=== PATIENT | male | born 1985 | race American Indian/Alaskan Native ===

== ENCOUNTER 2018-07-28 23:34 | Inpatient (IN) | payer SELFPAY ==
[2018-07-29] MEDS ORDERED: DIPRIVAN 10 MG/ML 1,000 MG/100 ML BOTTLE IV ONE ×3 (00:07→11:13)
[2018-07-29] MEDS ORDERED: ZEMURON IV ONE ×2 (00:14→00:24)
[2018-07-29] MEDS ORDERED: AMIDATE IV ONE ×2 (00:14→00:24)
[2018-07-29] MEDS ORDERED: XYLOCAINE CARDIAC IV ONE ×2 (00:14→00:24)
[2018-07-29] MEDS ORDERED: BOOSTRIX IM ONE ×2 (00:17→03:31)
[2018-07-29] MEDS ORDERED: ANCEF/NS 1 GM/50 ML 1 GM/50 ML BAG IV ONE (00:18)
[2018-07-29] MEDS ORDERED: VASELINE LIP THERAPY TP PRN (00:18)
[2018-07-29] MEDS ORDERED: ARTIFICIAL TEARS OPHTH OINT OU PRN (00:18)
[2018-07-29 00:20] LABS: INR 0.91 (0.87-1.13)
[2018-07-29 00:25] LABS: Basophils % (Auto) 0.5 % (0.0-1.8); Eosinophils % (Auto) 0.1 % (0.0-4.3); Hemoglobin 13.6 gm/dl (11.8-15.2); Lymphocytes # (Auto) 1.8 K/mm3 (1.2-5.4); Lymphocytes % (Auto) 16.5 % (13.4-35.0); Mean Corpuscular HGB Conc 34 % (32-34); Mean Corpuscular Volume 84 fl (84-94); Monocytes # (Auto) 0.9 K/mm3 (0.0-0.8); Monocytes % (Auto) 8.1 % (0.0-7.3); Platelet Count 226 K/mm3 (140-440); Red Blood Count 4.76 M/mm3 (3.65-5.03); Red Cell Distribution Width 15.7 % (13.2-15.2)
[2018-07-29 00:30] LABS: Partial Thromboplastin Time 24.1 Sec. (24.2-36.6)
[2018-07-29 00:39] LABS: Alanine Aminotransferase 21 units/L (7-56); Albumin 4.9 g/dL (3.9-5); BUN/Creatinine Ratio 9; Blood Urea Nitrogen 12 mg/dL (9-20); Calcium 9.5 mg/dL (8.4-10.2); Hemolysis Index 10
--- NOTE | 2018-07-29 00:49 | XRay Report ---
PROCEDURE: XR CHEST 1V AP TECHNIQUE: Chest radiograph single view. HISTORY: ETT placement COMPARISONS: None . FINDINGS: Heart: Normal. Mediastinum/Vessels: Normal. Lungs/Pleural space: Normal. Bony thorax: No acute osseous abnormality. Life support devices: The endotracheal tube ends 4 cm above the beckie. A nasogastric tube ends below the hemidiaphragms. IMPRESSION: There is no evidence of an acute cardiopulmonary process. Endotracheal tube and nasogast juan tube are properly positioned.. This document is electronically signed by Dalia Corrales DO., July 29 2018 12:47:01 AM ET
[2018-07-29] MEDS ORDERED: VITAMIN B-1 100 MG, FOLVITE 1 MG, INFUVITE 10 ML in NACL 0.9% 1000 ML 1,000 ML IV ONE (00:54)
[2018-07-29 00:57] LABS: Amphetamine Screen,Urine PRESUMPTIVE NEGATIVE; Benzodiazepines Screen,Urine PRESUMPTIVE NEGATIVE; Cocaine Screen,Urine PRESUMPTIVE NEGATIVE; Methadone Screen,Urine PRESUMPTIVE NEGATIVE; Opiate Screen,Urine PRESUMPTIVE NEGATIVE
[2018-07-29 00:58] LABS: Bilirubin,Urine NEG (Negative); Blood,Urine NEG (Negative); Color,Urine Yellow (Yellow); RBC,Urine < 1.0 /HPF (0.0-6.0); Urobilinogen,Urine < 2.0 mg/dL (<2.0)
[2018-07-29] MEDS ORDERED: DIPRIVAN 10 MG/ML 1,000 MG/100 ML BOTTLE IV SCH (01:00)
--- NOTE | 2018-07-29 01:11 | XRay Report ---
PROCEDURE: XR ABDOMEN 1V AP TECHNIQUE: Abdominal radiograph, single view. HISTORY: Post NG tube placement COMPARISONS: None . FINDINGS: Bowel gas pattern: Nonobstructive . Masses or calcifications: None . Bony structures: No significant abnormality . Other: The nasogastric tube ends in the upper stomach . IMPRESSION: The nasogastric tube ends in the upper stomach. This document is electronically signed by Dalia Corrales DO., July 29 2018 01:09:37 AM ET
--- NOTE | 2018-07-29 01:49 | Emergency Department Report ---
<ANTOINETTE MORAN - Last Filed: 07/29/18 02:24> ED Trauma HPI - General Chief Complaint: Alcohol Stated Complaint: INJURIES FROM [facility] Time Seen by Provider: 07/28/18 23:55 - History of Present Illness Allergies/Adverse Reactions: Allergies No Known Allergies Allergy (Unverified 07/29/18 00:29) - Laceration /Wound Repair Right Ear Wound Location: head Wound Length (cm): 1 (less than 1 cm ) Wound's Depth, Shape: flap Wound Explored: clean Irrigated w/ Saline (ccs): 20 Betadine Prep?: Yes Anesthesia: 1% Lidocaine Volume Anesthetic (ccs): 1 (0.5 cc) Wound Debrided: none required Wound Repaired With: sutures Suture Size/Type: 5:0, nylon Number of Sutures: 7 Layer Closure?: No Sterile Dressing Applied?: Yes Progress: left ear lobe flap laceration less than 1 cm minimal bleeding , wound cleaned with betadine solution, anesthesia with 1% lidocaine 0.5 cc, wound irrigated with 20 cc sterile saline, closed with 5.0 nylon x 7 running sutures all bleeding is controlled pt tolerated procedure with minimal distress, there is no cartilage involvement. ED Medical Decision Making - Lab Data Result diagrams: 07/28/18 23:50 07/28/18 23:50 ED Disposition Clinical Impression: Alcohol intoxication, Head injury, Psychosis, Endotracheally intubated Disposition: OP ADMIT IP TO THIS HOSP Condition: Stable <JUANCARLOS DEL VALLE - Last Filed: 07/29/18 06:09> ED Trauma HPI - General Source: patient, EMS Exam Limitations: intoxication - History of Present Illness Initial Comments: 33-year-old male with no known past medical history presents via EMS after PD called them after patient found at a [employer] gas station. On EMS arrival patient was agitated, altered and had signs of facial trauma. Patient is also acutely intoxicated with alcohol. Patient will not provide any reliable information. Patient has rambling speech that does not make sense but does not reliably answer very direct questions appropriately. He appears to be psychotic and delusional and obsessed with calling Vadimir putin. Patient also intermittently becomes agitated and attempts to get out of bed. He is very difficult to obtain any usable history of present illness or obtain a reliable exam. Decision made to intubate for airway protection and further assessment. This time unclear if patient's psychosis and alteration in mental status is secondary to underlying psychiatric disorder, drug/alcohol intoxication, or traumatic brain injury. ED Review of Systems ROS: Stated complaint: INJURIES FROM [facility] Other details as noted in HPI Comment: Unobtainable due to pts medical conditions ED Past Medical Hx - Past Medical History Additional medical history: no information taken/ patient is agitated - Surgical History Additional Surgical History: no information taken/ patient is agitated - Social History Smoking Status: Unknown if ever smoked ED Physical Exam - General Limitations: Altered Mental Status - Other Other exam information: General: No limitations, patient is alert in no acute distress Head exam: Left frontal scalp hematoma, facial abrasions, right ear laceration, multiple facial abrasions, lip swelling without laceration. Eyes exam: Normal appearance, pupils equal reactive to light, extraocular movements intact, mild subconjucival hemorrhage ENT: Moist mucous membrane, dry blood in the mouth without signs of oral laceration Neck exam: Normal inspection, full range of motion, no meningismus nontender the patient is intoxicated and agitated Respiratory exam: Clear to auscultation bilateral, no wheezes, rales, crackles Cardiovascular: Tachycardia regular rhythm, no signs of chest wall trauma Abdomen: Soft, nondistended, and nontender, with normal bowel sounds, no rebound, or guarding, no contusions to abdomen Extremity: Full range of motion normal inspection no deformity Back: Normal Inspection, full range of motion, no tenderness Neurologic: Agitated, combative, psychotic, oriented to self, no gross motor or sensory deficit. Psychiatric: Agitated, delusional, psychotic Skin: Right ear laceration ED Course Vital Signs 07/28/18 07/29/18 07/29/18 23:50 00:00 00:06 Temperature Pulse Rate 97 H 111 H 108 H Respiratory 25 H 14 21 Rate Blood Pressure 154/96 Blood Pressure 154/96 75/56 146/97 [Left] O2 Sat by Pulse 100 97 100 Oximetry 07/29/18 07/29/18 07/29/18 00:14 00:30 00:32 Temperature 98.9 F Pulse Rate 91 H 93 H 85 Respiratory 18 18 Rate Blood Pressure 154/99 161/104 Blood Pressure 170/103 [Left] O2 Sat by Pulse 100 100 100 Oximetry 07/29/18 07/29/18 07/29/18 00:45 01:00 01:03 Temperature Pulse Rate 73 82 Respiratory 18 18 Rate Blood Pressure 140/92 147/98 147/98 Blood Pressure [Left] O2 Sat by Pulse 100 100 100 Oximetry 07/29/18 07/29/18 07/29/18 01:49 02:00 02:15 Temperature Pulse Rate 75 72 Respiratory 18 17 Rate Blood Pressure 138/85 111/69 111/72 Blood Pressure [Left] O2 Sat by Pulse 100 97 99 Oximetry 07/29/18 07/29/18 07/29/18 02:30 02:45 03:00 Temperature Pulse Rate 60 75 80 Respiratory 18 14 18 Rate Blood Pressure 118/79 140/82 121/69 Blood Pressure [Left] O2 Sat by Pulse 100 100 99 Oximetry 07/29/18 07/29/18 07/29/18 03:15 03:30 03:45 Temperature Pulse Rate 68 62 61 Respiratory 18 18 18 Rate Blood Pressure 116/69 116/69 112/70 Blood Pressure [Left] O2 Sat by Pulse 100 100 100 Oximetry 07/29/18 07/29/18 07/29/18 04:00 04:15 04:30 Temperature Pulse Rate 60 68 67 Respiratory 18 14 18 Rate Blood Pressure 114/73 141/93 115/71 Blood Pressure [Left] O2 Sat by Pulse 100 100 100 Oximetry 07/29/18 07/29/18 07/29/18 04:45 04:50 05:00 Temperature Pulse Rate 69 68 69 Respiratory 18 18 Rate Blood Pressure 113/68 111/64 111/71 Blood Pressure [Left] O2 Sat by Pulse 100 100 100 Oximetry 07/29/18 07/29/18 07/29/18 05:15 05:30 05:45 Temperature Pulse Rate 69 66 65 Respiratory 18 18 18 Rate Blood Pressure 115/68 110/67 115/68 Blood Pressure [Left] O2 Sat by Pulse 100 100 100 Oximetry 07/29/18 06:00 Temperature Pulse Rate 66 Respiratory 18 Rate Blood Pressure 112/69 Blood Pressure [Left] O2 Sat by Pulse 100 Oximetry - Intubation Time Out Performed: Yes Sedative: Etomidate Mg Given: 20 Paralytic: Rocuronium Mg Given: 90 Laryngoscope: Karthik Size: 4 ET Tube Size: 8 Other Airway Intervention: pretreatment with lidocaine 100mg Tube Secured Depth (cm): 24 Tube Secured Location: lips Tube Placement Confirmation: visualized tube passing t, equal breath sounds bilat, no breath sounds over epi, confirmation by capnometr Patient Tolerated Procedure: well Intubation Complications: none Additional Comments: neuro intubation with pretreatment with lidocaine, etomidate, Rocuronium ED Medical Decision Making - Lab Data Result diagrams: 07/28/18 23:50 07/28/18 23:50 Lab Results 07/28/18 07/28/18 07/28/18 Range/Units 23:50 23:50 23:50 WBC 10.6 (4.5-11.0) K/mm3 RBC 4.76 (3.65-5.03) M/mm3 Hgb 13.6 (11.8-15.2) gm/dl Hct 40.0 (35.5-45.6) % MCV 84 (84-94) fl MCH 29 (28-32) pg MCHC 34 (32-34) % RDW 15.7 H (13.2-15.2) % Plt Count 226 (140-440) K/mm3 Lymph % (Auto) 16.5 (13.4-35.0) % Hardy % (Auto) 8.1 H (0.0-7.3) % Eos % (Auto) 0.1 (0.0-4.3) % Baso % (Auto) 0.5 (0.0-1.8) % Lymph # 1.8 (1.2-5.4) K/mm3 Hardy # 0.9 H (0.0-0.8) K/mm3 Eos # 0.0 (0.0-0.4) K/mm3 Baso # 0.0 (0.0-0.1) K/mm3 Seg Neutrophils % 74.8 H (40.0-70.0) % Seg Neutrophils # 8.0 H (1.8-7.7) K/mm3 PT 12.8 (12.2-14.9) Sec. INR 0.91 (0.87-1.13) APTT 24.1 L (24.2-36.6) Sec. POC ABG pH (7.35-7.45) POC ABG pCO2 (35-45) POC ABG pO2 (80-105) POC ABG HCO3 (22-26 mml/L) POC ABG Total CO2 (23-27mmol/L) POC ABG O2 Sat POC ABG Base Excess ((-2) - (+3)mmol/L) FiO2 % Sodium 146 H (137-145) mmol/L Potassium 3.7 (3.6-5.0) mmol/L Chloride 105.5 (98-107) mmol/L Carbon Dioxide 27 (22-30) mmol/L Anion Gap 17 mmol/L BUN 12 (9-20) mg/dL Creatinine 1.3 (0.8-1.5) mg/dL Estimated GFR > 60 ml/min BUN/Creatinine Ratio 9 % Glucose 121 H (75-100) mg/dL Calcium 9.5 (8.4-10.2) mg/dL Magnesium 2.00 (1.7-2.3) mg/dL Total Bilirubin 0.80 (0.1-1.2) mg/dL AST 30 (5-40) units/L ALT 21 (7-56) units/L Alkaline Phosphatase 36 (35-129) units/L Total Protein 7.3 (6.3-8.2) g/dL Albumin 4.9 (3.9-5) g/dL Albumin/Globulin Ratio 2.0 % Urine Color (Yellow) Urine Turbidity (Clear) Urine pH (5.0-7.0) Ur Specific Willow (1.003-1.030) Urine Protein (Negative) mg/dL Urine Glucose (UA) (Negative) mg/dL Urine Ketones (Negative) mg/dL Urine Blood (Negative) Urine Nitrite (Negative) Urine Bilirubin (Negative) Urine Urobilinogen (<2.0) mg/dL Ur Leukocyte Esterase (Negative) Urine WBC (Auto) (0.0-6.0) /HPF Urine RBC (Auto) (0.0-6.0) /HPF U Epithel Cells (Auto) (0-13.0) /HPF Urine Opiates Screen Urine Methadone Screen Ur Barbiturates Screen Ur Phencyclidine Scrn Ur Amphetamines Screen U Benzodiazepines Scrn Urine Cocaine Screen U Marijuana (THC) Screen Drugs of Abuse Note Plasma/Serum Alcohol (0-0.07) % Blood Type Antibody Screen 07/28/18 07/28/18 07/29/18 Range/Units 23:50 23:50 00:01 WBC (4.5-11.0) K/mm3 RBC (3.65-5.03) M/mm3 Hgb (11.8-15.2) gm/dl Hct (35.5-45.6) % MCV (84-94) fl MCH (28-32) pg MCHC (32-34) % RDW (13.2-15.2) % Plt Count (140-440) K/mm3 Lymph % (Auto) (13.4-35.0) % Hardy % (Auto) (0.0-7.3) % Eos % (Auto) (0.0-4.3) % Baso % (Auto) (0.0-1.8) % Lymph # (1.2-5.4) K/mm3 Hardy # (0.0-0.8) K/mm3 Eos # (0.0-0.4) K/mm3 Baso # (0.0-0.1) K/mm3 Seg Neutrophils % (40.0-70.0) % Seg Neutrophils # (1.8-7.7) K/mm3 PT (12.2-14.9) Sec. INR (0.87-1.13) APTT (24.2-36.6) Sec. POC ABG pH (7.35-7.45) POC ABG pCO2 (35-45) POC ABG pO2 (80-105) POC ABG HCO3 (22-26 mml/L) POC ABG Total CO2 (23-27mmol/L) POC ABG O2 Sat POC ABG Base Excess ((-2) - (+3)mmol/L) FiO2 % Sodium (137-145) mmol/L Potassium (3.6-5.0) mmol/L Chloride (98-107) mmol/L Carbon Dioxide (22-30) mmol/L Anion Gap mmol/L BUN (9-20) mg/dL Creatinine (0.8-1.5) mg/dL Estimated GFR ml/min BUN/Creatinine Ratio % Glucose (75-100) mg/dL Calcium (8.4-10.2) mg/dL Magnesium (1.7-2.3) mg/dL Total Bilirubin (0.1-1.2) mg/dL AST (5-40) units/L ALT (7-56) units/L Alkaline Phosphatase (35-129) units/L Total Protein (6.3-8.2) g/dL Albumin (3.9-5) g/dL Albumin/Globulin Ratio % Urine Color Yellow (Yellow) Urine Turbidity Clear (Clear) Urine pH 6.0 (5.0-7.0) Ur Specific Willow 1.010 (1.003-1.030) Urine Protein 30 mg/dl (Negative) mg/dL Urine Glucose (UA) Neg (Negative) mg/dL Urine Ketones Neg (Negative) mg/dL Urine Blood Neg (Negative) Urine Nitrite Neg (Negative) Urine Bilirubin Neg (Negative) Urine Urobilinogen < 2.0 (<2.0) mg/dL Ur Leukocyte Esterase Neg (Negative) Urine WBC (Auto) 1.0 (0.0-6.0) /HPF Urine RBC (Auto) < 1.0 (0.0-6.0) /HPF U Epithel Cells (Auto) < 1.0 (0-13.0) /HPF Urine Opiates Screen Urine Methadone Screen Ur Barbiturates Screen Ur Phencyclidine Scrn Ur Amphetamines Screen U Benzodiazepines Scrn Urine Cocaine Screen U Marijuana (THC) Screen Drugs of Abuse Note Plasma/Serum Alcohol 0.17 H (0-0.07) % Blood Type B POSITIVE Antibody Screen Negative 07/29/18 07/29/18 Range/Units 00:01 01:06 WBC (4.5-11.0) K/mm3 RBC (3.65-5.03) M/mm3 Hgb (11.8-15.2) gm/dl Hct (35.5-45.6) % MCV (84-94) fl MCH (28-32) pg MCHC (32-34) % RDW (13.2-15.2) % Plt Count (140-440) K/mm3 Lymph % (Auto) (13.4-35.0) % Hardy % (Auto) (0.0-7.3) % Eos % (Auto) (0.0-4.3) % Baso % (Auto) (0.0-1.8) % Lymph # (1.2-5.4) K/mm3 Hardy # (0.0-0.8) K/mm3 Eos # (0.0-0.4) K/mm3 Baso # (0.0-0.1) K/mm3 Seg Neutrophils % (40.0-70.0) % Seg Neutrophils # (1.8-7.7) K/mm3 PT (12.2-14.9) Sec. INR (0.87-1.13) APTT (24.2-36.6) Sec. POC ABG pH 7.385 (7.35-7.45) POC ABG pCO2 39.8 (35-45) POC ABG pO2 235 H (80-105) POC ABG HCO3 23.9 (22-26 mml/L) POC ABG Total CO2 25 (23-27mmol/L) POC ABG O2 Sat 100 POC ABG Base Excess -1 ((-2) - (+3)mmol/L) FiO2 60 % Sodium (137-145) mmol/L Potassium (3.6-5.0) mmol/L Chloride (98-107) mmol/L Carbon Dioxide (22-30) mmol/L Anion Gap mmol/L BUN (9-20) mg/dL Creatinine (0.8-1.5) mg/dL Estimated GFR ml/min BUN/Creatinine Ratio % Glucose (75-100) mg/dL Calcium (8.4-10.2) mg/dL Magnesium (1.7-2.3) mg/dL Total Bilirubin (0.1-1.2) mg/dL AST (5-40) units/L ALT (7-56) units/L Alkaline Phosphatase (35-129) units/L Total Protein (6.3-8.2) g/dL Albumin (3.9-5) g/dL Albumin/Globulin Ratio % Urine Color (Yellow) Urine Turbidity (Clear) Urine pH (5.0-7.0) Ur Specific Willow (1.003-1.030) Urine Protein (Negative) mg/dL Urine Glucose (UA) (Negative) mg/dL Urine Ketones (Negative) mg/dL Urine Blood (Negative) Urine Nitrite (Negative) Urine Bilirubin (Negative) Urine Urobilinogen (<2.0) mg/dL Ur Leukocyte Esterase (Negative) Urine WBC (Auto) (0.0-6.0) /HPF Urine RBC (Auto) (0.0-6.0) /HPF U Epithel Cells (Auto) (0-13.0) /HPF Urine Opiates Screen Presumptive negative Urine Methadone Screen Presumptive negative Ur Barbiturates Screen Presumptive negative Ur Phencyclidine Scrn Presumptive negative Ur Amphetamines Screen Presumptive negative U Benzodiazepines Scrn Presumptive negative Urine Cocaine Screen Presumptive negative U Marijuana (THC) Screen Presumptive positive Drugs of Abuse Note Disclamer Plasma/Serum Alcohol (0-0.07) % Blood Type Antibody Screen - EKG Data -: EKG Interpreted by Me EKG shows normal: sinus rhythm, axis (qrs 84), QRS complexes (qrs ), ST-T waves (no stemi/t inv) Rate: normal (76) - EKG Data When compared to previous EKG there are: previous EKG unavailable - Radiology Data Radiology results: report reviewed cxr: et tube and ngt good position abd xray: ngt ends in upper part of stomach ct head: naf ct cervical spine: naf ct chest IV contrast: naf ct abd/pelvis IV contrast: naf ct cervical spine ADDENDUM ADDENDUM: The impression should read: There is no evidence of an acute fracture or dislocation. Moderate motion artifact does obscure detail in the lower cervical spine. This document is electronically signed by Dalia Corrales DO., July 29 2018 03:00:04 AM ET Addendum Transcribed By: [facility] Addendum Dictated By: DALIA CORRALES MD Addendum Electronically Authenticated By: DALIA CORRALES MD Addendum Signed Date/Time: 07/29/18300 DD/ /07/12 TD/TT: 07/29/1802/06/153 PROCEDURE: CT CERVICAL SPINE WO CON TECHNIQUE: Computerized tomography of the cervical spine was performed from the skull base to T1 without contrast material. HISTORY: head injury, ams, etoh COMPARISONS: None . FINDINGS: C1-2: No significant abnormality . C2-3: No significant abnormality . C3-4: No significant abnormality . C4-5: No significant abnormality . C5-6: No significant abnormality . C6-7: No significant abnormality . C7-T1: No significant abnormality . Fractures: None . Other: There is moderate motion artifact on this study. This doesn't vascular detail in the lower cervical spine. . IMPRESSION: There is no evidence of an acute fracture or dislocation. Moderate motion artifact does obstruction. Detailed lower cervical spine. . - Medical Decision Making intubated for protection of pt and staff due to ams/psychosis with head injury pt required multiple staff members and security for cooperation prior to intubation and remained agitated and not reliably following commands plan to admit pt to hospitalist service - Differential Diagnosis intracranial injury, psychosis, drug intoxication, alcohol intoxication Critical Care Time: No Critical care attestation.: If time is entered above; I have spent that time in minutes in the direct care of this critically ill patient, excluding procedure time. ED Disposition Is pt being admited?: Yes Time of Disposition: 03:08 (DR [place]/hosp)
--- NOTE | 2018-07-29 01:51 | Cat Scan Report ---
PROCEDURE: CT HEAD/BRAIN WO CON TECHNIQUE: Computerized tomography of the head was performed without contrast material. HISTORY: head injury, ams, etoh COMPARISONS: None . FINDINGS: Skull and scalp: Normal . Paranasal sinuses: Mild opacification of the ethmoid and maxillary sinuses. . Ventricles and subarachnoid spaces: Normal . Cerebrum: No evidence of hemorrhage, acute infarction or mass . Cerebellum and brainstem: No evidence of hemorrhage, acute infarction or mass . Vasculature: Normal . Other: None . ASPECTS: 10 IMPRESSION: There is no evidence of an acute intracranial process . This document is electronically signed by Dalia Corrales DO., July 29 2018 01:49:31 AM ET
--- NOTE | 2018-07-29 01:58 | Cat Scan Report ---
PROCEDURE: CT CERVICAL SPINE WO CON TECHNIQUE: Computerized tomography of the cervical spine was performed from the skull base to T1 wit hout contrast material. HISTORY: head injury, ams, etoh COMPARISONS: None . FINDINGS: C1-2: No significant abnormality . C2-3: No significant abnormality . C3-4: No significant abnormality . C4-5: No significant abnormality . C5-6: No significant abnormality . C6-7: No significant abnormality . C7-T1: No significant abnormality . Fractures: None . Other: There is moderate motion artifact on this study. This doesn't vascular detail in the lower cer vical spine. . IMPRESSION: There is no evidence of an acute fracture or dislocation. Moderate motion artifact does obstruction. Detailed lower cervical spine. . This document is electronically signed by Dalia Corrales DO., July 29 2018 01:56:36 AM ET
--- NOTE | 2018-07-29 02:07 | Cat Scan Report ---
PROCEDURE: CT FACIAL BONES WO CON TECHNIQUE: Computerized tomography of the facial bones and soft tissues with axial and coronal secti ons performed from the cranial aspect of the frontal sinuses to the caudal portion of the mandible wi thout contrast material. Automated exposure control, adjustment of mA and/or kV according to patient size, or iterative reconstruction dose optimization techniques were utilized. HISTORY: head injury, ams, etoh COMPARISONS: None . FINDINGS: Bones: No significant abnormality . Paranasal sinuses: Mild opacification of the ethmoid sinuses . Soft tissues: No significant abnormality . Other: None . IMPRESSION: There is no evidence of a fracture of the facial bones. Mild sinusitis. . This document is electronically signed by Dalia Corrales DO., July 29 2018 02:05:45 AM ET
--- NOTE | 2018-07-29 02:21 | Cat Scan Report ---
PROCEDURE: CT CHEST abdomen and pelvis W CON TECHNIQUE: Computerized axial tomography of the chest and abdomen was performed after the IV injecti on of iodinated nonionic contrast. Automated exposure control, adjustment of mA and/or kV according t o patient size, or iterative reconstruction dose optimization techniques were utilized. HISTORY: head injury, ams, etoh COMPARISONS: None . FINDINGS: Heart and pericardium: Normal. Thoracic aorta: Normal. Pulmonary vasculature: Normal. Mediastinum: No enlarged thoracic lymph nodes. Lungs: Slight atelectasis left lower lung. Pleural space: No effusion, thickening, or pneumothorax. Liver: Normal size and attenuation. Spleen: Normal size and attenuation. Gallbladder and biliary system: Normal. Pancreas: Normal. Adrenals: Normal. Kidneys: Normal. GI tract: The nasogastric tube ends in the upper stomach. The small bowel is normal. The cecum, appe ndix region and colon are normal. . Lymph nodes and mesentery: Normal. Vasculature: Normal.. Peritoneum: No free fluid. Musculoskeletal structures: No significant abnormality. Other: None. IMPRESSION: There is no evidence of acute trauma to the chest abdomen or pelvis. Slight atelectasis left lower lung is noted. A nasogastric tube ends in the upper stomach.. This document is electronically signed by Dalia Corrales DO., July 29 2018 02:19:48 AM ET
[2018-07-29 02:33] LABS: Cannabinoid Screen,Urine PRESUMPTIVE POSITIVE
--- NOTE | 2018-07-29 02:43 | Cat Scan Report ---
PROCEDURE: CT ABDOMEN PELVIS W CON TECHNIQUE: Routine axial imaging was obtained of the abdomen and pelvis following the intravenous in jection of 100 cc of Omnipaque 350. Delayed imaging was obtained through the kidneys ureters and blad yary. Sagittal and coronal reconstructions were reviewed. HISTORY: head injury, ams, etoh COMPARISONS: None FINDINGS: The lung bases are clear. Pleural fluid is not seen. There is an NG tube in place with the tip in goo d position the stomach. The liver, gallbladder, biliary tree, pancreas, spleen, and adrenal glands appear normal. The kidneys enhance normally. The abdominal aorta is normal in caliber. The portal vein enhances normally. The b owel loops are normal in caliber and course. There is no evidence of free fluid or adenopathy. The ap pendix is not enlarged. In the pelvis the prostate gland and bladder appear normal. The skeletal stru ctures do not show any acute changes. IMPRESSION: No acute process in the abdomen and pelvis.. This document is electronically signed by Pipe Le MD., July 29 2018 02:41:51 AM ET
[2018-07-29] MEDS ORDERED: SODIUM CHLORIDE FLUSH SYRINGE 10 ML IV PRN (03:56)
[2018-07-29] MEDS ORDERED: ZOFRAN IV PRN (03:56)
--- NOTE | 2018-07-29 04:09 | History and Physical Report ---
History of Present Illness Date of examination: 07/29/18 Chief complaint: Altered mental status per report History of present illness: Patient is a 33-year-old male who was brought to the ER via EMS on account of altered mental status. It was reported that the police was initially called at a [employer] gas station because patient was noted to be confused with agitation. The police department then called EMS and on arrival, he was found to be agitated, altered and had signs of facial trauma. In the ED, patient was talking inappropriately and no history could be obtained from him. He was also severely agitated and posed harm to himself and medical staff, which necessitated intubating him for airway protection. Past History Past Medical History: other (unknown because patient is intubated and sedated) Past Surgical History: Other (unknown because patient is intubated and sedated) Social history: other (unknown because patient is intubated and sedated) Family history: other (unknown because patient is intubated and sedated) Medications and Allergies Allergies Allergy/AdvReac Type Severity Reaction Status Date / Time No Known Allergies Allergy Unverified 07/29/18 00:29 Active Meds: Active Medications Acetaminophen (Tylenol) 650 mg PO Q4H PRN PRN Reason: Pain MILD(1-3)/Fever >100.5/GUADARRAMA Hydrophilic Ointment (Vaseline Lip Therapy) 1 applic TP Q2HR PRN PRN Reason: Dry Lips Last Admin: 07/29/18 03:26 Dose: 1 applic Documented by: Propofol (Diprivan 10 Mg/Ml) 1,000 mg in 100 mls @ 2.85 mls/hr IV TITR THIEN; Protocol Thiamine HCl 100 mg/ Folic Acid 1 mg/ Multivitamins/Minerals 10 ml/ Sodium Chloride 1,011.2 mls @ 250 mls/hr IV ONCE ONE Stop: 07/29/18 04:56 Last Admin: 07/29/18 02:14 Dose: 250 mls/hr Documented by: Potassium Chloride/Dextrose/Sod Cl (D5w/0.45% Nacl/Kcl 10 Meq) 10 meq in 1,000 mls @ 75 mls/hr IV DIRECT THIEN Multi-Ingred Cream/Lotion/Oil/Oint (Artificial Tears Ophth Oint) 1 applic OU Q4HR PRN PRN Reason: Dry Eye(s) Last Admin: 07/29/18 03:26 Dose: 1 applic Documented by: Ondansetron HCl (Zofran) 4 mg IV Q8H PRN PRN Reason: Nausea And Vomiting Sodium Chloride (Sodium Chloride Flush Syringe 10 Ml) 10 ml IV BID THIEN Sodium Chloride (Sodium Chloride Flush Syringe 10 Ml) 10 ml IV PRN PRN PRN Reason: LINE FLUSH Review of Systems ROS unobtainable: due to endotracheal tube Exam - Constitutional Vitals: Temp Pulse Resp BP Pulse Ox 98.9 F 75 18 111/69 97 07/29/18 00:14 07/29/18 02:00 07/29/18 02:00 07/29/18 02:00 07/29/18 02:00 General appearance: Present: no acute distress, well-nourished - EENT Eyes: Present: PERRL, EOM intact ENT: hearing intact, clear oral mucosa - Neck Neck: Present: supple, normal ROM - Respiratory Respiratory effort: normal Respiratory: bilateral: CTA - Cardiovascular Rhythm: regular Heart Sounds: Present: S1 & S2. Absent: rub, click - Extremities Extremities: No edema Peripheral Pulses: within normal limits - Abdominal General gastrointestinal: Present: soft, non-tender, non-distended, normal bowel sounds Male genitourinary: Present: deferred - Integumentary Integumentary: Present: erythema (with multiple bruises on the face and lips) - Musculoskeletal Musculoskeletal: other (unable to assess because patient is intubated and sedated) - Psychiatric Psychiatric: other (unable to assess because patient is intubated and sedated) - Neurologic Neurologic: other (patient is intubated and sedated) Results - Labs CBC & Chem 7: 07/28/18 23:50 07/28/18 23:50 Labs: Laboratory Last Values WBC 10.6 K/mm3 (4.5-11.0) 07/28/18 23:50 RBC 4.76 M/mm3 (3.65-5.03) 07/28/18 23:50 Hgb 13.6 gm/dl (11.8-15.2) 07/28/18 23:50 Hct 40.0 % (35.5-45.6) 07/28/18 23:50 MCV 84 fl (84-94) 07/28/18 23:50 MCH 29 pg (28-32) 07/28/18 23:50 MCHC 34 % (32-34) 07/28/18 23:50 RDW 15.7 % (13.2-15.2) H 07/28/18 23:50 Plt Count 226 K/mm3 (140-440) 07/28/18 23:50 Lymph % (Auto) 16.5 % (13.4-35.0) 07/28/18 23:50 [place] % (Auto) 8.1 % (0.0-7.3) H 07/28/18 23:50 Eos % (Auto) 0.1 % (0.0-4.3) 07/28/18 23:50 Baso % (Auto) 0.5 % (0.0-1.8) 07/28/18 23:50 Lymph # 1.8 K/mm3 (1.2-5.4) 07/28/18 23:50 [place] # 0.9 K/mm3 (0.0-0.8) H 07/28/18 23:50 Eos # 0.0 K/mm3 (0.0-0.4) 07/28/18 23:50 Baso # 0.0 K/mm3 (0.0-0.1) 07/28/18 23:50 Seg Neutrophils % 74.8 % (40.0-70.0) H 07/28/18 23:50 Seg Neutrophils # 8.0 K/mm3 (1.8-7.7) H 07/28/18 23:50 PT 12.8 Sec. (12.2-14.9) 07/28/18 23:50 INR 0.91 (0.87-1.13) 07/28/18 23:50 APTT 24.1 Sec. (24.2-36.6) L 07/28/18 23:50 POC ABG pH 7.385 (7.35-7.45) 07/29/18 01:06 POC ABG pCO2 39.8 (35-45) 07/29/18 01:06 POC ABG pO2 235 (80-105) H 07/29/18 01:06 POC ABG HCO3 23.9 (22-26 mml/L) 07/29/18 01:06 POC ABG Total CO2 25 (23-27mmol/L) 04/10/19 01:06 POC ABG O2 Sat 100 07/29/18 01:06 POC ABG Base Excess -1 ((-2) - (+3)mmol/L) 07/29/18 01:06 FiO2 60 % 07/29/18 01:06 Sodium 146 mmol/L (137-145) H 07/28/18 23:50 Potassium 3.7 mmol/L (3.6-5.0) 07/28/18 23:50 Chloride 105.5 mmol/L (98-107) 07/28/18 23:50 Carbon Dioxide 27 mmol/L (22-30) 07/28/18 23:50 Anion Gap 17 mmol/L 07/28/18 23:50 BUN 12 mg/dL (9-20) 07/28/18 23:50 Creatinine 1.3 mg/dL (0.8-1.5) 07/28/18 23:50 Estimated GFR > 60 ml/min 07/28/18 23:50 BUN/Creatinine Ratio 9 % 07/28/18 23:50 Glucose 121 mg/dL (75-100) H 07/28/18 23:50 Calcium 9.5 mg/dL (8.4-10.2) 07/28/18 23:50 Magnesium 2.00 mg/dL (1.7-2.3) 07/28/18 23:50 Total Bilirubin 0.80 mg/dL (0.1-1.2) 07/28/18 23:50 AST 30 units/L (5-40) 07/28/18 23:50 ALT 21 units/L (7-56) 07/28/18 23:50 Alkaline Phosphatase 36 units/L (35-129) 07/28/18 23:50 Total Protein 7.3 g/dL (6.3-8.2) 07/28/18 23:50 Albumin 4.9 g/dL (3.9-5) 07/28/18 23:50 Albumin/Globulin Ratio 2.0 % 07/28/18 23:50 Urine Color Yellow (Yellow) 07/29/18 00:01 Urine Turbidity Clear (Clear) 07/29/18 00:01 Urine pH 6.0 (5.0-7.0) 07/29/18 00:01 Ur Specific [place] 1.010 (1.003-1.030) 07/29/18 00:01 Urine Protein 30 mg/dl mg/dL (Negative) 07/29/18 00:01 Urine Glucose (UA) Neg mg/dL (Negative) 07/29/18 00:01 Urine Ketones Neg mg/dL (Negative) 07/29/18 00:01 Urine Blood Neg (Negative) 07/29/18 00:01 Urine Nitrite Neg (Negative) 07/29/18 00:01 Urine Bilirubin Neg (Negative) 07/29/18 00:01 Urine Urobilinogen < 2.0 mg/dL (<2.0) 07/29/18 00:01 Ur Leukocyte Esterase Neg (Negative) 07/29/18 00:01 Urine WBC (Auto) 1.0 /HPF (0.0-6.0) 07/29/18 00:01 Urine RBC (Auto) < 1.0 /HPF (0.0-6.0) 07/29/18 00:01 U Epithel Cells (Auto) < 1.0 /HPF (0-13.0) 07/29/18 00:01 Urine Opiates Screen Presumptive negative 07/29/18 00:01 Urine Methadone Screen Presumptive negative 07/29/18 00:01 Ur Barbiturates Screen Presumptive negative 07/29/18 00:01 Ur Phencyclidine Scrn Presumptive negative 07/29/18 00:01 Ur Amphetamines Screen Presumptive negative 07/29/18 00:01 U Benzodiazepines Scrn Presumptive negative 07/29/18 00:01 Urine Cocaine Screen Presumptive negative 07/29/18 00:01 U Marijuana (THC) Screen Presumptive positive 07/29/18 00:01 Drugs of Abuse Note Disclamer 07/29/18 00:01 Plasma/Serum Alcohol 0.17 % (0-0.07) H 07/28/18 23:50 Blood Type B POSITIVE 07/28/18 23:50 Antibody Screen Negative 07/28/18 23:50 Assessment and Plan Assessment and plan: Alcohol intoxication -Monitor clinically Acute toxic encephalopathy -Probably secondary to alcohol intoxication versus possible acute psychosis -Head CT scan and drug screen negative -Monitor clinically Facial trauma -Exact cause unknown -All imaging negative for acute findings Hypernatremia -On IV fluid, will monitor sodium level Status post intubation for airway protection -Pulmonology consulted DVT prophylaxis with SCD I spent 45 minutes providing critical care to this seriously ill patient who requires frequent reassessments of his neurological status Disposition: For discharge when medically stable
[2018-07-29] MEDS ORDERED: ATIVAN IV ONE (04:13)
[2018-07-29] MEDS ORDERED: ATIVAN ONE ×2 (04:14→11:14)
--- NOTE | 2018-07-29 09:18 | Event Note ---
Date: 07/29/18 Patient was admitted this morning with following diagnosis Patient seen and examined, medical records reviewed Agree with the current management Assessment and plan; Alcohol intoxication -Monitor clinically Acute toxic encephalopathy -Probably secondary to alcohol intoxication versus possible acute psychosis -Head CT scan and drug screen negative -Monitor clinically Facial trauma -Exact cause unknown -All imaging negative for acute findings Hypernatremia -On IV fluid, will monitor sodium level Status post intubation for airway protection -Pulmonology consulted DVT prophylaxis with SCD Disposition: For discharge when medically stable
[2018-07-29] MEDS ORDERED: ATIVAN IV PRN (09:30)
[2018-07-29] MEDS ORDERED: KCL IV ONE (10:30)
[2018-07-29] MEDS ORDERED: NACL IV ONE (10:30)
[2018-07-29] MEDS ORDERED: D5W IV ONE (10:30)
[2018-07-29] MEDS ORDERED: ZOFRAN ONE (11:34)
[2018-07-29] MEDS: SODIUM CHLORIDE FLUSH SYRINGE 10 ML IV SCH ×2 (11:56→21:45)
[2018-07-29] MEDS: D5W/0.45% NACL/KCL 10 MEQ 10 MEQ/1,000 ML BAG IV SCH (12:07)
--- NOTE | 2018-07-29 16:20 | Progress Note ---
Assessment and Plan Assessment and plan: --Metabolic encephalopathy/alcohol intoxication ; Status post intubation for airway protection Continue ventilatory support , nebulizers Pulmonology consulted Venous tolerated and extubate --Alcohol intoxication; monitor alcohol withdrawal symptoms Continue CIMO protocol, supportive care. --Acute toxic encephalopathy; secondary to Probably secondary to alcohol intoxication versus possible acute psychosis Head CT scan and drug screen negative, Monitor clinically --Facial trauma; probably secondary to fall Closely monitor , local wound care , patient has sutures of the earlobe --Hypernatremia -On IV fluid, will monitor sodium level --DVT prophylaxis with SCD Closely monitor the patient and just the management Possible discharge in 1-2 days if stable History Interval history: Patient seen and examined medical records reviewed Patient intubated on ventilatory support On CIWA protocol No new events reported by the nursing staff Vital signs reviewed Hospitalist Physical - Constitutional Vitals: Temp Pulse Resp BP Pulse Ox 98.9 F 62 16 131/74 99 07/29/18 00:14 07/29/18 15:45 07/29/18 15:52 07/29/18 15:45 07/29/18 15:52 General appearance: Present: no acute distress, well-nourished - EENT Eyes: Present: PERRL, EOM intact - Neck Neck: Present: supple, normal ROM - Respiratory Respiratory effort: normal, pursed lips - Cardiovascular Rhythm: regular Heart Sounds: Present: S1 & S2 - Extremities Extremities: no ischemia, No edema - Abdominal General gastrointestinal: soft, non-tender, non-distended, normal bowel sounds - Integumentary Integumentary: Present: clear, warm - Psychiatric Psychiatric: other (intubated on vent) - Neurologic Neurologic: other (intubated on vent) Results - Labs CBC & Chem 7: 07/30/18 04:31 07/30/18 04:31 Labs: Laboratory Last Values WBC 10.6 K/mm3 (4.5-11.0) 07/28/18 23:50 RBC 4.76 M/mm3 (3.65-5.03) 07/28/18 23:50 Hgb 13.6 gm/dl (11.8-15.2) 07/28/18 23:50 Hct 40.0 % (35.5-45.6) 07/28/18 23:50 MCV 84 fl (84-94) 07/28/18 23:50 MCH 29 pg (28-32) 07/28/18 23:50 MCHC 34 % (32-34) 07/28/18 23:50 RDW 15.7 % (13.2-15.2) H 07/28/18 23:50 Plt Count 226 K/mm3 (140-440) 07/28/18 23:50 Lymph % (Auto) 16.5 % (13.4-35.0) 07/28/18 23:50 [place] % (Auto) 8.1 % (0.0-7.3) H 07/28/18 23:50 Eos % (Auto) 0.1 % (0.0-4.3) 07/28/18 23:50 Baso % (Auto) 0.5 % (0.0-1.8) 07/28/18 23:50 Lymph # 1.8 K/mm3 (1.2-5.4) 07/28/18 23:50 [place] # 0.9 K/mm3 (0.0-0.8) H 07/28/18 23:50 Eos # 0.0 K/mm3 (0.0-0.4) 07/28/18 23:50 Baso # 0.0 K/mm3 (0.0-0.1) 07/28/18 23:50 Seg Neutrophils % 74.8 % (40.0-70.0) H 07/28/18 23:50 Seg Neutrophils # 8.0 K/mm3 (1.8-7.7) H 07/28/18 23:50 PT 12.8 Sec. (12.2-14.9) 07/28/18 23:50 INR 0.91 (0.87-1.13) 07/28/18 23:50 APTT 24.1 Sec. (24.2-36.6) L 07/28/18 23:50 POC ABG pH 7.385 (7.35-7.45) 07/29/18 01:06 POC ABG pCO2 39.8 (35-45) 07/29/18 01:06 POC ABG pO2 235 (80-105) H 07/29/18 01:06 POC ABG HCO3 23.9 (22-26 mml/L) 07/29/18 01:06 POC ABG Total CO2 25 (23-27mmol/L) 07/29/18 01:06 POC ABG O2 Sat 100 07/29/18 01:06 POC ABG Base Excess -1 ((-2) - (+3)mmol/L) 07/29/18 01:06 FiO2 60 % 07/29/18 01:06 Sodium 146 mmol/L (137-145) H 07/28/18 23:50 Potassium 3.7 mmol/L (3.6-5.0) 07/28/18 23:50 Chloride 105.5 mmol/L (98-107) 07/28/18 23:50 Carbon Dioxide 27 mmol/L (22-30) 07/28/18 23:50 Anion Gap 17 mmol/L 07/28/18 23:50 BUN 12 mg/dL (9-20) 07/28/18 23:50 Creatinine 1.3 mg/dL (0.8-1.5) 07/28/18 23:50 Estimated GFR > 60 ml/min 07/28/18 23:50 BUN/Creatinine Ratio 9 % 07/28/18 23:50 Glucose 121 mg/dL (75-100) H 07/28/18 23:50 Calcium 9.5 mg/dL (8.4-10.2) 07/28/18 23:50 Magnesium 2.00 mg/dL (1.7-2.3) 07/28/18 23:50 Total Bilirubin 0.80 mg/dL (0.1-1.2) 07/28/18 23:50 AST 30 units/L (5-40) 07/28/18 23:50 ALT 21 units/L (7-56) 07/28/18 23:50 Alkaline Phosphatase 36 units/L (35-129) 07/28/18 23:50 Total Protein 7.3 g/dL (6.3-8.2) 07/28/18 23:50 Albumin 4.9 g/dL (3.9-5) 07/28/18 23:50 Albumin/Globulin Ratio 2.0 % 07/28/18 23:50 Urine Color Yellow (Yellow) 07/29/18 00:01 Urine Turbidity Clear (Clear) 07/29/18 00:01 Urine pH 6.0 (5.0-7.0) 07/29/18 00:01 Ur Specific [place] 1.010 (1.003-1.030) 07/29/18 00:01 Urine Protein 30 mg/dl mg/dL (Negative) 07/29/18 00:01 Urine Glucose (UA) Neg mg/dL (Negative) 07/29/18 00:01 Urine Ketones Neg mg/dL (Negative) 07/29/18 00:01 Urine Blood Neg (Negative) 07/29/18 00:01 Urine Nitrite Neg (Negative) 07/29/18 00:01 Urine Bilirubin Neg (Negative) 07/29/18 00:01 Urine Urobilinogen < 2.0 mg/dL (<2.0) 07/29/18 00:01 Ur Leukocyte Esterase Neg (Negative) 07/29/18 00:01 Urine WBC (Auto) 1.0 /HPF (0.0-6.0) 07/29/18 00:01 Urine RBC (Auto) < 1.0 /HPF (0.0-6.0) 07/29/18 00:01 U Epithel Cells (Auto) < 1.0 /HPF (0-13.0) 07/29/18 00:01 Urine Opiates Screen Presumptive negative 07/29/18 00:01 Urine Methadone Screen Presumptive negative 07/29/18 00:01 Ur Barbiturates Screen Presumptive negative 07/29/18 00:01 Ur Phencyclidine Scrn Presumptive negative 07/29/18 00:01 Ur Amphetamines Screen Presumptive negative 07/29/18 00:01 U Benzodiazepines Scrn Presumptive negative 07/29/18 00:01 Urine Cocaine Screen Presumptive negative 07/29/18 00:01 U Marijuana (THC) Screen Presumptive positive 07/29/18 00:01 Drugs of Abuse Note Disclamer 07/29/18 00:01 Plasma/Serum Alcohol 0.17 % (0-0.07) H 07/28/18 23:50 Blood Type B POSITIVE 07/28/18 23:50 Antibody Screen Negative 07/28/18 23:50 Active Medications - Current Medications Current Medications: Generic Name Dose Route Start Last Admin Trade Name Freq PRN Reason Stop Dose Admin Acetaminophen 650 mg 07/29/18 03:56 Tylenol PO Q4H PRN Pain MILD(1-3)/Fever >100.5/GUADARRAMA Hydrophilic Ointment 1 applic 07/29/18 00:18 07/29/18 03:26 Vaseline Lip Therapy TP 1 applic Q2HR PRN Administration Dry Lips Potassium Chloride/Dextrose/Sod Cl 10 meq in 1,000 mls @ 75 mls/hr 07/29/18 04:00 07/29/18 12:07 D5w/0.45% Nacl/Kcl 10 Meq IV 75 mls/hr DIRECT THIEN Administration Lorazepam 2 mg 07/29/18 09:30 07/29/18 11:15 Ativan IV 2 mg Q4H PRN Administration Agitation Multi-Ingred Cream/Lotion/Oil/Oint 1 applic 07/29/18 00:18 07/29/18 03:26 Artificial Tears Ophth Oint OU 1 applic Q4HR PRN Administration Dry Eye(s) Ondansetron HCl 4 mg 07/29/18 03:56 07/29/18 11:38 Zofran IV 4 mg Q8H PRN Administration Nausea And Vomiting Sodium Chloride 10 ml 07/29/18 10:00 07/29/18 11:56 Sodium Chloride Flush Syringe 10 Ml IV 10 ml BID THIEN Administration Sodium Chloride 10 ml 07/29/18 03:56 Sodium Chloride Flush Syringe 10 Ml IV PRN PRN LINE FLUSH Nutrition/Malnutrition Assess - Dietary Evaluation Nutrition/Malnutrition Findings: Nutrition Notes Start: 07/29/18 09:38 Freq: Status: Active Protocol: Document 07/29/18 09:38 DANII (Rec: 07/29/18 09:43 ILJEAN [id number]) Nutrition Notes Need for Assessment generated from: MD Order Initial or Follow up Assessment Other Pertinent Diagnosis AMS, EtOH intoxication, Facial trauma Current Diet NPO Labs/Tests Reviewed Pertinent Medications D5 with 1/2NS + 10mEq KCl at 75ml/hr, Propofol at 28.5ml/hr (provides 752 kcal) Height 6 ft Weight 86.183 kg [place] Body Weight (kg) 80.90 BMI 25.7 Weight Status Appropriate Subjective/Other Information RD consulted to evaluate nutritional intake. Pt currently in ED and on vent support. He is also on CIWA protocol. Burn Absent Trauma Absent #1 Nutrition Diagnosis Inadequate oral intake Etiology mech ventilation As Evidenced by Signs and Symptoms pt NPO Is patient on ventilator? Yes Is Patient Ambulatory and/or Out of Bed No REE-([facility]-confined to bed) 1112.501 Calculation Used for Recommendations Rodrigo Lazar Additional Notes Pro needs 1.2-2g/k-172g/ day Fluid needs 1ml/kcal Nutrition Intervention Change Diet Order: Advance diet when medically feasible Goal #1 Either advance diet or start EN support to meet nutrient needs Anticipated Discharge Needs: Unable to identify at this time Follow-Up By: 07/31/18 Additional Comments F/U: TF consult vs diet advancement, vent status
[2018-07-29] MEDS: TYLENOL PO PRN (21:44)
[2018-07-30] MEDS: D5W/0.45% NACL/KCL 10 MEQ 10 MEQ/1,000 ML BAG IV SCH (02:00)
[2018-07-30] MEDS: TYLENOL PO PRN (03:30)
[2018-07-30] MEDS ORDERED: AFLURIA QUAD 2018-2019 SYRINGE IM ONE (03:49)
[2018-07-30 05:21] LABS: Basophils % (Auto) 0.2 % (0.0-1.8); Eosinophils % (Auto) 0.4 % (0.0-4.3); Hematocrit 38.2 % (35.5-45.6); Hemoglobin 12.6 gm/dl (11.8-15.2); Lymphocytes # (Auto) 0.9 K/mm3 (1.2-5.4); Lymphocytes % (Auto) 13.3 % (13.4-35.0); Mean Corpuscular HGB Conc 33 % (32-34); Mean Corpuscular Volume 85 fl (84-94); Monocytes # (Auto) 0.6 K/mm3 (0.0-0.8); Monocytes % (Auto) 9.5 % (0.0-7.3); Platelet Count 184 K/mm3 (140-440); Red Blood Count 4.49 M/mm3 (3.65-5.03); Red Cell Distribution Width 15.9 % (13.2-15.2)
[2018-07-30 05:39] LABS: BUN/Creatinine Ratio 9; Blood Urea Nitrogen 10 mg/dL (9-20); Calcium 8.8 mg/dL (8.4-10.2); Hemolysis Index 6
--- NOTE | 2018-07-30 08:36 | XRay Report ---
AP CHEST: HISTORY: Followup respiratory failure Endotracheal tube and nasogastric tube have been removed since 07/29/18. AP view of the chest demonstrates a normal mediastinal and cardiac contour with clear lungs and normal bony and soft tissue structures. IMPRESSION: Unremarkable AP chest.
[2018-07-30] MEDS: SODIUM CHLORIDE FLUSH SYRINGE 10 ML IV SCH (09:15)
--- NOTE | 2018-07-30 15:38 | Discharge Summary ---
Providers - Providers Date of Admission: 07/29/18 03:56 Date of discharge: 07/30/18 Attending physician: CHANELLE ORTIZ 07/29/18 00:18 Consult to Dietitian/Nutrition [CONS] Routine Physician Instructions: Reason For Exam: Reason for Consult: Evaluate nutritional intake Primary care physician: [employer] Hospitalization Reason for admission: altered level of consciousness/alcohol intoxication Condition: Stable Pertinent studies: CT head; acute abnormality CT cervical spine; no acute abnormality CT chest; no evidence of acute trauma to chest abdomen or pelvis slight atelectatic left lower lung CT face; no acute abnormality, mild sinusitis CT abdomen and pelvis; no acute abnormalities X-ray today; no abnormality Hospital course: 2-year-old that 3-year-old male patient was admitted to emergency room with altered level of consciousness Polycy[employer] called and patient was confused at a gas station patient was noted to be agitated initial workup is consistent with alcohol intoxication severely confused unable to protect if they promptly intubated admitted to ICU Symptomatically managed convenient as tolerated and extubated Transfer to medical floor Patient was placed on CIWA protocol Counseling done advised to quit alcohol intake Today patient is comfortable in no new complaints vital signs stable physical examination unremarkable Patient is stable at the time of discharge Discharge diagnosis --Alcohol intoxication Monitor clinically --Acute toxic encephalopathy -Probably secondary to alcohol intoxication versus possible acute psychosis -Head CT scan and drug screen negative -Monitor clinically --Facial trauma -Exact cause unknown -All imaging negative for acute findings --Hypernatremia -On IV fluid, will monitor sodium level --Status post intubation for airway protection Extubated Patient is stable at discharge Disposition: ND-01 TO HOME OR SELFCARE Time spent for discharge: 32 min Core Measure Documentation - Palliative Care Palliative Care/ Comfort Measures: Not Applicable - Core Measures Any of the following diagnoses?: none Exam - Constitutional Vitals: Temp Pulse Resp BP Pulse Ox 98.1 F 64 18 139/92 100 07/30/18 11:58 07/30/18 11:58 07/30/18 11:58 07/30/18 11:58 07/30/18 11:58 General appearance: Present: no acute distress, well-nourished - EENT Eyes: Present: PERRL, EOM intact - Neck Neck: Present: supple, normal ROM - Respiratory Respiratory effort: normal Respiratory: bilateral: diminished, negative: rales, rhonchi, wheezing - Cardiovascular Rhythm: regular Heart Sounds: Present: S1 & S2 - Extremities Extremities: no ischemia, No edema - Abdominal General gastrointestinal: Present: soft, non-tender, non-distended, normal bowel sounds - Integumentary Integumentary: Present: clear, warm - Musculoskeletal Musculoskeletal: strength equal bilaterally - Psychiatric Psychiatric: appropriate mood/affect, cooperative - Neurologic Neurologic: CNII-XII intact, moves all extremities Plan Activity: advance as tolerated, fall precautions Diet: regular Special Instructions: smoking cessation Additional Instructions: Advised to quit Alcohol intake. Advised smoking cessation [facility] [Referring[facility] - 3-5 Days Prescriptions: Folic Acid [Folvite] 1 mg PO QDAY #30 tablet Amoxicillin [Trimox CAP] 500 mg PO Q8H #30 capsule Thiamine [Vitamin B-1] 100 mg PO QDAY #30 tablet
[2018-07-30 18:40] VITALS: BP 134/87
== END 2018-07-30 20:25 | disposition home or self-care (01) | DRG 92 ==
LOC: ED 23:34 → CC1 07-29 03:56 → 3A 07-29 14:54
PROVIDERS: ADMIT Internal Medicine; ATTEND Internal Medicine
PROC: 4A033R1 Measurement of Arterial Saturation, Peripheral, Percutaneous Approach (ICD-10-PCS; principal; 2018-07-29)
PROC: 5A1935Z Respiratory Ventilation, Less than 24 Consecutive Hours (ICD-10-PCS; 2018-07-29)
PROC: 0BH17EZ Insertion of Endotracheal Airway into Trachea, Via Natural or Artificial Opening (ICD-10-PCS; 2018-07-29)
PROC: 0HQ3XZZ Repair Left Ear Skin, External Approach (ICD-10-PCS; 2018-07-29)
DX: G92 Toxic encephalopathy (principal); E87.0 Hyperosmolality and hypernatremia; S05.32XA Ocular laceration without prolapse or loss of intraocular tissue, left eye, initial encounter; F10.129 Alcohol abuse with intoxication, unspecified; F29 Unspecified psychosis not due to a substance or known physiological condition; X58.XXXA Exposure to other specified factors, initial encounter; Y93.89 Activity, other specified; Y92.89 Other specified places as the place of occurrence of the external cause; Y99.8 Other external cause status
CPT/HCPCS: 36415; 70450; 70486; 71045; 71260; 72125; 74018; 74177; 80048; 80053; 80307; 80320; 81001; 82803; 82962; 83735; 84100; 85025; 85610; 85730; 86850; 86900; 86901; 87070; 87205; 90686; 90715; 93005; 93010; 94002; 94003; 94760; 96365; 96366; 96375; 96376; 99406; G0378; G0480; J0690; J2001; J2060; J2405; J2704; J3411; J7030; Q9967